=== PATIENT | male | born 1985 | race Caucasian/White ===

== ENCOUNTER 2016-05-14 06:34 | Emergency (ER) | payer BC ==
[2016-05-14] MEDS ORDERED: ACETAMINOPHEN 325 MG TAB As Ordered ONE (07:06)
--- NOTE | 2016-05-14 07:32 | EDDOCDS ---
Physician Documentation [facility] Name: Nick Juan Age: 31 yrs Sex: Male : 1985 Arrival Date: 05/14/2016 Time: 06:34 Bed I5 / M5 Private MD: Disposition: 05/14/16 07:21 Discharged to Home/Self Care. Impression: Fever presenting with conditions classified elsewhere, Streptococcal pharyngitis. - Condition is Stable. - Discharge Instructions: Strep Throat. - Prescriptions for magic mouthwash Mucous Membrane Solution - as directed 5 milliliters by ORAL route 3-4 times daily As needed gargle, swish, spit. Maalox, Liquid Benadryl, Viscous Lidocaine. 1:1:1; 237 milliliter. Zithromax Z- Carmelo 250 mg Oral Tablet - take 1 tablet by ORAL route as directed for 5 days Day 1- take two tablets once. Day 2, 3, 4 , 5 take one tablet once daily.; 6 tablet. - Work Release Form - 2 day, Medication Reconciliation, Local Pharmacy Hours form. - Follow up: Emergency Department; When: As needed; Reason: Worsening of conditions. [facility]: [facility]; When: Call to arrange an appointment; Reason: Recheck today's complaints, Continuance of care, To establish care. - Problem is new. - Symptoms are unchanged. Historical: - Allergies: Amoxicillin; - Home Meds: 1. none - PMHx: none; - PSHx: none; - Social history: Smoking status: Patient states was never smoker of tobacco. No barriers to communication noted, The patient speaks fluent [place]. - Family history: Not pertinent. - : The pt / caregiver states he / she is not on anticoagulants. Home medication list is obtained from the patient. - Exposure Risk Screening:: None identified. Vital Signs: 05/14 06:45 BP 139 / 65; Pulse 79; Resp 18 S; Temp 100.5(TE); Pulse Ox 96% on R/A; Weight 95.25 kg af2 / 209.99 lbs (R); Height 6 ft. 0 in. (182.88 cm) (R); Pain 8/10; 06:45 Body Mass Index 28.48 (95.25 kg, 182.88 cm) af2 MDM: 07:02 Acetaminophen Tablet 975 mg PO once ordered. dt4 07:02 Strep Screen, Nursing ordered. dt4 07:28 Financial registration complete. mm15 Administered Medications: 07:13 Drug: Acetaminophen 975 mg [acetaminophen 325 mg tablet (3 tabs)] Route: PO; hs1 07:30 Follow up: Response: Pt left department before re-evaluation is appropriate hs1 Signatures: Kalyn Andino RN RN hs1 Sydney Sandoval mm15 Vanessa Lovelace PA-C PADoni dt4 Noreen BhattiRN RN af2 MTDD
--- NOTE | 2016-05-14 07:32 | EDDOCDS ---
Nurse's Notes [facility] Name: Nick Juan Age: 31 yrs Sex: Male : 1985 Arrival Date: 05/14/2016 Time: 06:34 Bed I5 / M5 Private MD: Diagnosis: Fever presenting with conditions classified elsewhere;Streptococcal pharyngitis Presentation: 05/14 06:45 Presenting complaint: Patient states: sore throat, fever, body aches. Risk factors: af2 Stridor is not present. Drooling is not present. Shortness of breath is not present. Cellulitis is not present. Adult Sepsis Screening: The patient does not have new or worsening altered mentation. Patient's respiratory rate is less than 22. Systolic blood pressure is greater than 100. Patient has a qSOFA score of 0- Negative Sepsis Screen. Suicide/Homicide risk assessment- the patient denies having any suicidal and/or homicidal ideations and does not present with any other emotional, behavioral or mental health complaints. 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 Transition of care: patient was not received from another setting of care. 06:45 Acuity: SISI Level 4 af2 06:45 Method Of Arrival: Walkin/Carried/Asstd af2 Triage Assessment: 06:47 General: Appears in no apparent distress, Behavior is cooperative. Pain: Pain currently af2 is 8 out of 10 on a pain scale. Pt Declines HIV testing. EENT: Reports sore throat, fever, body aches.. Historical: - Allergies: Amoxicillin; - Home Meds: 1. none - PMHx: none; - PSHx: none; - Social history: Smoking status: Patient states was never smoker of tobacco. No barriers to communication noted, The patient speaks fluent Faroese. - Family history: Not pertinent. - : The pt / caregiver states he / she is not on anticoagulants. Home medication list is obtained from the patient. - Exposure Risk Screening:: None identified. Screenin:14 Screening information is obtained from the patient. Fall risk: No risks identified. hs1 Assistance ADL's: requires no assistance with activities of daily living. Abuse/DV Screen: The patient / caregiver reports he/she is: not in a situation that causes fear, pain or injury. Nutritional screening: No deficits noted. Advance Directives: There is no active DNR order. home support is adequate. Assessment: 07:13 General: Appears in no apparent distress, uncomfortable. Pain: Location: throat Quality hs1 of pain is described as sharp. EENT: Throat is reddened has enlarged tonsils with gag reflex present. Respiratory: Airway is patent Respiratory effort is even, unlabored, Respiratory pattern is regular, symmetrical. Derm: Skin is pink, warm & dry. normal. Vital Signs: 06:45 BP 139 / 65; Pulse 79; Resp 18 S; Temp 100.5(TE); Pulse Ox 96% on R/A; Weight 95.25 kg af2 (R); Height 6 ft. 0 in. (182.88 cm) (R); Pain 8/10; 06:45 Body Mass Index 28.48 (95.25 kg, 182.88 cm) af2 Vitals: 06:45 Log In Time: May 14, 2016 at 06:37. af2 07:16 Strep Screen is obtained and tested: Positive. hs1 ED Course: 06:36 Patient visited by Mimi De Santiago Reg. hs2 06:36 Patient moved to Waiting hs2 06:45 Patient moved to Triage 1 af2 06:46 Triage Initiated af2 06:47 Patient moved to I5 / M5 af2 07:01 Vanessa Lovelace PA-C is PHCP. dt4 07:01 Ismael Lloyd DO is Attending Physician. dt4 07:01 Patient visited by Vaenssa Lovelace PA-C. dt4 07:17 No IV's were initiated during this patient's visit. No procedures done that require hs1 assistance. 07:21 [facility] is Referral Physician. dt4 07:31 The patient / caregiver is instructed regarding the plan of care and ED course. hs1 Administered Medications: 07:13 Drug: Acetaminophen 975 mg [acetaminophen 325 mg tablet (3 tabs)] Route: PO; hs1 07:30 Follow up: Response: Pt left department before re-evaluation is appropriate hs1 Order Results: There are currently no results for this order. Outcome: 07:21 Discharge ordered by Provider. dt4 07:30 Discharge Assessment: Patient awake, alert and oriented x 3. No cognitive and/or hs1 functional deficits noted. Patient verbalized understanding of disposition instructions. patient administered narcotics - no. The following High Risk Discharge criteria are identified: None. Discharged to home ambulatory. Condition: stable. Discharge instructions given to patient, Instructed on discharge instructions, follow up and referral plans. medication usage, Demonstrated understanding of instructions, medications, Pt was receptive of discharge instructions/ teaching. Prescriptions given X 2. No special radiology studies were completed. Property sent home with patient. 07:31 Patient left the ED. hs1 Signatures: Kalyn Andino RN RN hs1 Vanessa Lovelace PA-C PADoni dt4 Noreen Bhatti RN RN af2 Mimi De Santiago, Reg Reg hs2 MTDD
--- NOTE | 2016-05-16 08:32 | EDDOCDS ---
Nurse's Notes [facility] Name: Nick Juan Age: 31 yrs Sex: Male : 1985 Arrival Date: 05/14/2016 Time: 06:34 Bed I5 / M5 Private MD: Diagnosis: Fever presenting with conditions classified elsewhere;Streptococcal pharyngitis Presentation: 05/14 06:45 Presenting complaint: Patient states: sore throat, fever, body aches. Risk factors: af2 Stridor is not present. Drooling is not present. Shortness of breath is not present. Cellulitis is not present. Adult Sepsis Screening: The patient does not have new or worsening altered mentation. Patient's respiratory rate is less than 22. Systolic blood pressure is greater than 100. Patient has a qSOFA score of 0- Negative Sepsis Screen. Suicide/Homicide risk assessment- the patient denies having any suicidal and/or homicidal ideations and does not present with any other emotional, behavioral or mental health complaints. 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 Transition of care: patient was not received from another setting of care. 06:45 Acuity: SISI Level 4 af2 06:45 Method Of Arrival: Walkin/Carried/Asstd af2 Triage Assessment: 06:47 General: Appears in no apparent distress, Behavior is cooperative. Pain: Pain currently af2 is 8 out of 10 on a pain scale. Pt Declines HIV testing. EENT: Reports sore throat, fever, body aches.. Historical: - Allergies: Amoxicillin; - Home Meds: 1. none - PMHx: none; - PSHx: none; - Social history: Smoking status: Patient states was never smoker of tobacco. No barriers to communication noted, The patient speaks fluent French. - Family history: Not pertinent. - : The pt / caregiver states he / she is not on anticoagulants. Home medication list is obtained from the patient. - Exposure Risk Screening:: None identified. Screenin:14 Screening information is obtained from the patient. Fall risk: No risks identified. hs1 Assistance ADL's: requires no assistance with activities of daily living. Abuse/DV Screen: The patient / caregiver reports he/she is: not in a situation that causes fear, pain or injury. Nutritional screening: No deficits noted. Advance Directives: There is no active DNR order. home support is adequate. Assessment: 07:13 General: Appears in no apparent distress, uncomfortable. Pain: Location: throat Quality hs1 of pain is described as sharp. EENT: Throat is reddened has enlarged tonsils with gag reflex present. Respiratory: Airway is patent Respiratory effort is even, unlabored, Respiratory pattern is regular, symmetrical. Derm: Skin is pink, warm & dry. normal. Vital Signs: 06:45 BP 139 / 65; Pulse 79; Resp 18 S; Temp 100.5(TE); Pulse Ox 96% on R/A; Weight 95.25 kg af2 (R); Height 6 ft. 0 in. (182.88 cm) (R); Pain 8/10; 06:45 Body Mass Index 28.48 (95.25 kg, 182.88 cm) af2 Vitals: 06:45 Log In Time: May 14, 2016 at 06:37. af2 07:16 Strep Screen is obtained and tested: Positive. hs1 ED Course: 06:36 Patient visited by Mimi De Santiago Reg. hs2 06:36 Patient moved to Waiting hs2 06:45 Patient moved to Triage 1 af2 06:46 Triage Initiated af2 06:47 Patient moved to I5 / M5 af2 07:01 Vanessa Lovelace PA-C is PHCP. dt4 07:01 Ismael Lloyd DO is Attending Physician. dt4 07:01 Patient visited by Vanessa Lovelace PA-C. dt4 07:17 No IV's were initiated during this patient's visit. No procedures done that require hs1 assistance. 07:21 [facility] is Referral Physician. dt4 07:31 The patient / caregiver is instructed regarding the plan of care and ED course. hs1 08:04 [facility] Payment Agreement was scanned into [employer] and attached to record. mm15 13:29 T-Sheet-- Draft Copy was scanned into [employer] and attached to record. gb Administered Medications: 07:13 Drug: Acetaminophen 975 mg [acetaminophen 325 mg tablet (3 tabs)] Route: PO; hs1 07:30 Follow up: Response: Pt left department before re-evaluation is appropriate hs1 Order Results: There are currently no results for this order. Outcome: 07:21 Discharge ordered by Provider. dt4 07:30 Discharge Assessment: Patient awake, alert and oriented x 3. No cognitive and/or hs1 functional deficits noted. Patient verbalized understanding of disposition instructions. patient administered narcotics - no. The following High Risk Discharge criteria are identified: None. Discharged to home ambulatory. Condition: stable. Discharge instructions given to patient, Instructed on discharge instructions, follow up and referral plans. medication usage, Demonstrated understanding of instructions, medications, Pt was receptive of discharge instructions/ teaching. Prescriptions given X 2. No special radiology studies were completed. Property sent home with patient. 07:31 Patient left the ED. hs1 Signatures: Aleyda Atkinson, Reg Reg gb Kalyn Andino RN RN hs1 Sydney Sandoval mm15 Vanessa Lovelace PA-C PADoni dt4 Noreen Bhatti RN RN af2 Mimi De Santiago, Reg Reg hs2 Chart Complete ABBY
--- NOTE | 2016-05-16 08:32 | EDDOCDS ---
Physician Documentation [facility] Name: Nick Juan Age: 31 yrs Sex: Male : 1985 Arrival Date: 05/14/2016 Time: 06:34 Bed I5 / M5 Private MD: Disposition: 05/14/16 07:21 Discharged to Home/Self Care. Impression: Fever presenting with conditions classified elsewhere, Streptococcal pharyngitis. - Condition is Stable. - Discharge Instructions: Strep Throat. - Prescriptions for magic mouthwash Mucous Membrane Solution - as directed 5 milliliters by ORAL route 3-4 times daily As needed gargle, swish, spit. Maalox, Liquid Benadryl, Viscous Lidocaine. 1:1:1; 237 milliliter. Zithromax Z- Carmelo 250 mg Oral Tablet - take 1 tablet by ORAL route as directed for 5 days Day 1- take two tablets once. Day 2, 3, 4 , 5 take one tablet once daily.; 6 tablet. - Work Release Form - 2 day, Medication Reconciliation, Local Pharmacy Hours form. - Follow up: Emergency Department; When: As needed; Reason: Worsening of conditions. Follow [facility]: [facility]; When: Call to arrange an appointment; Reason: Recheck today's complaints, Continuance of care, To establish care. - Problem is new. - Symptoms are unchanged. Historical: - Allergies: Amoxicillin; - Home Meds: 1. none - PMHx: none; - PSHx: none; - Social history: Smoking status: Patient states was never smoker of tobacco. No barriers to communication noted, The patient speaks fluent Niuean. - Family history: Not pertinent. - : The pt / caregiver states he / she is not on anticoagulants. Home medication list is obtained from the patient. - Exposure Risk Screening:: None identified. Vital Signs: 05/14 06:45 BP 139 / 65; Pulse 79; Resp 18 S; Temp 100.5(TE); Pulse Ox 96% on R/A; Weight 95.25 kg af2 / 209.99 lbs (R); Height 6 ft. 0 in. (182.88 cm) (R); Pain 8/10; 06:45 Body Mass Index 28.48 (95.25 kg, 182.88 cm) af2 MDM: 07:02 Acetaminophen Tablet 975 mg PO once ordered. dt4 07:02 Strep Screen, Nursing ordered. dt4 07:28 Financial registration complete. mm15 08:04 [facility] Payment Agreement was scanned into [employer] and attached to record. mm15 13:29 T-Sheet-- Draft Copy was scanned into [employer] and attached to record. gb Administered Medications: 07:13 Drug: Acetaminophen 975 mg [acetaminophen 325 mg tablet (3 tabs)] Route: PO; hs1 07:30 Follow up: Response: Pt left department before re-evaluation is appropriate hs1 Signatures: Aleyda Atkinson, Reg Reg gb Kalyn Andino RN RN hs1 Sydney Sandoval mm15 Vanessa Lovelace PA-C PADoni dt4 Noreen Bhatti,RN RN af2 The chart was reviewed and I authenticate all verbal orders and agree with the evaluation and treatment provided.Attachments: 08:04 [facility] Payment Agreement mm15 13:29 T-Sheet-- Draft Copy gb Chart Complete MTDD
--- NOTE | 2016-05-16 08:32 | EDDOCDS ---
Physician Documentation [facility] Name: Nick Juan Age: 31 yrs Sex: Male : 1985 Arrival Date: 05/14/2016 Time: 06:34 Bed I5 / M5 Private MD: Disposition: 05/14/16 07:21 Discharged to Home/Self Care. Impression: Fever presenting with conditions classified elsewhere, Streptococcal pharyngitis. - Condition is Stable. - Discharge Instructions: Strep Throat. - Prescriptions for magic mouthwash Mucous Membrane Solution - as directed 5 milliliters by ORAL route 3-4 times daily As needed gargle, swish, spit. Maalox, Liquid Benadryl, Viscous Lidocaine. 1:1:1; 237 milliliter. Zithromax Z- Carmelo 250 mg Oral Tablet - take 1 tablet by ORAL route as directed for 5 days Day 1- take two tablets once. Day 2, 3, 4 , 5 take one tablet once daily.; 6 tablet. - Work Release Form - 2 day, Medication Reconciliation, Local Pharmacy Hours form. - Follow up: Emergency Department; When: As needed; Reason: Worsening of conditions. Follow up: [facility]; When: Call to arrange an appointment; Reason: Recheck today's complaints, Continuance of care, To establish care. - Problem is new. - Symptoms are unchanged. Historical: - Allergies: Amoxicillin; - Home Meds: 1. none - PMHx: none; - PSHx: none; - Social history: Smoking status: Patient states was never smoker of tobacco. No barriers to communication noted, The patient speaks fluent Ukrainian. - Family history: Not pertinent. - : The pt / caregiver states he / she is not on anticoagulants. Home medication list is obtained from the patient. - Exposure Risk Screening:: None identified. Vital Signs: 05/14 06:45 BP 139 / 65; Pulse 79; Resp 18 S; Temp 100.5(TE); Pulse Ox 96% on R/A; Weight 95.25 kg af2 / 209.99 lbs (R); Height 6 ft. 0 in. (182.88 cm) (R); Pain 8/10; 06:45 Body Mass Index 28.48 (95.25 kg, 182.88 cm) af2 MDM: 07:02 Acetaminophen Tablet 975 mg PO once ordered. dt4 07:02 Strep Screen, Nursing ordered. dt4 07:28 Financial registration complete. mm15 08:04 [facility] Payment Agreement was scanned into [employer] and attached to record. mm15 13:29 T-Sheet-- Draft Copy was scanned into [employer] and attached to record. gb Administered Medications: 07:13 Drug: Acetaminophen 975 mg [acetaminophen 325 mg tablet (3 tabs)] Route: PO; hs1 07:30 Follow up: Response: Pt left department before re-evaluation is appropriate hs1 Signatures: Aleyda Atkinson, Reg Reg gb Kalyn Andino RN RN hs1 Sydney Sandoval mm15 Vanessa Lovelace PA-C PADoni dt4 Noreen Bhatti,RN RN af2 The chart was reviewed and I authenticate all verbal orders and agree with the evaluation and treatment provided.Attachments: 08:04 [facility] Payment Agreement mm15 13:29 T-Sheet-- Draft Copy gb Chart Complete MTDD
== END 2016-05-14 07:31 | disposition home or self-care (01) ==
LOC: M ED 06:34
DX: J02.0 Streptococcal pharyngitis (principal); Z88.0 Allergy status to penicillin

== ENCOUNTER → 2017-09-01 | Outpatient (REF) | payer BC | LOC: M SFHCLERA 19:03 | DX: J02.9 Acute pharyngitis, unspecified (principal) ==

== ENCOUNTER → 2018-07-22 | Outpatient (REF) | payer BC | LOC: M LAB REF 12:21 | PROVIDERS: ATTEND Physician Assistant | DX: J02.9 Acute pharyngitis, unspecified (principal) ==